=== PATIENT | female | born 1985 | race African-American/Black ===

== ENCOUNTER 2016-11-20 13:12 | Emergency (ER) | payer OTHER ==
[2016-11-20] MEDS ORDERED: Ibuprofen 800 MG TAB ONE (15:01)
== END 2016-11-20 16:07 | disposition home or self-care (01) ==
LOC: ERS 13:12
DX: J01.90 Acute sinusitis, unspecified (principal); E03.9 Hypothyroidism, unspecified
CPT/HCPCS: 99283

== ENCOUNTER 2016-12-08 07:25 | Emergency (ER) | payer OTHER ==
[2016-12-08 07:57] LABS: #Basophils 0.1 thou/uL (0.0-0.2); #Eosinphils 0.2 thou/uL (0.0-0.7); #Lymphocytes 2.3 thou/uL (1.20-3.40); #Monocytes 0.5 thou/uL (0.11-0.59); #Neutrophils 4.1 thou/uL (1.40-6.50); %Basophils 1.4 % (0.0-1.0); %Eosinophils 2.2 % (0.0-10.0); %Lymphocytes 32.4 % (21.0-51.0); Hematocrit 42.7 % (36.0-47.0); Mean Platelet Volume 6.5 fL (7.4-10.4); Red Blood Cell (RBC) Count 5.52 mill/uL (4.20-5.40); White Blood Cell (WBC) Count 7.2 thou/uL (4.8-10.8)
[2016-12-08 08:36] LABS: ALT (SGPT) 13 U/L (8-55); AST (SGOT) 10 U/L (5-34); Alkaline Phosphatase 54 U/L (40-150); Anion Gap 11 mmol/L (10-20); BUN (Urea Nitrogen) 6 mg/dL (7.0-18.7); Bilirubin, Total 0.3 mg/dL (0.2-1.2); Calc. Creatinine Clearance 0 mL/min (70-130); Calcium 9.3 mg/dL (7.8-10.44); Carbon Dioxide 23 mmol/L (22-29); Chloride 108 mmol/L (98-107); Estimated GFR-MDRD Greater than 90; Globulin 3.6 g/dL (2.4-3.5); Lipase 25 U/L (8-78); Protein, Total 7.3 g/dL (6.0-8.3)
[2016-12-08 08:45] LABS: Bilirubin Negative (Negative); Blood, Urine Negative (Negative); Glucose, Urine (Dipstick) Negative (Negative); Ketone, Urine Negative (Negative); Nitrite Negative (Negative); Protein, Urine (Dipstick) Negative (Neg-Trace); Urobilinogen 0.2 mg/dL (0.2-1.0)
[2016-12-08] MEDS ORDERED: Ondansetron ODT 4 MG TAB ONE (08:56)
== END 2016-12-08 10:15 | disposition home or self-care (01) ==
LOC: ERS 07:25
DX: R11.2 Nausea with vomiting, unspecified (principal); E03.9 Hypothyroidism, unspecified
CPT/HCPCS: 36415; 80053; 81003; 81025; 83690; 85025; 99284; Q0162

== ENCOUNTER 2016-12-26 16:03 | Emergency (ER) | payer OTHER ==
--- NOTE | 2016-12-26 16:31 | RAD ---
LEFT ANKLE THREE VIEWS: 12/26/16 HISTORY: 31-year-old female with left ankle pain following injury. Fall at [place]. IMPRESSION: No fracture, dislocation, or other significant acute osseous abnormality. POS: [facility]
== END 2016-12-26 17:11 | disposition home or self-care (01) ==
LOC: ERS 16:03
DX: S86.012A Strain of left Achilles tendon, initial encounter (principal); E03.9 Hypothyroidism, unspecified; X50.1XXA Overexertion from prolonged static or awkward postures, initial encounter